=== PATIENT | male | born 1970 | race Hispanic/Latino ===

== ENCOUNTER 2024-11-16 09:40 | Emergency (ER) | payer BC ==
[~2024-11-16] VITALS: Ht 180.3 cm; Wt 99.0 kg
[2024-11-16 09:45] VITALS: PULSE 84; RESP 18; TEMP 98.9; O2SAT 96
[2024-11-16] MEDS ORDERED: LIDOCAINE HCL 2% LOCAL 20 ML VIAL ONE (10:08)
[2024-11-16] MEDS ORDERED: IBUPROFEN600 MG PO (10:09)
[2024-11-16] MEDS ORDERED: DOXYCYCLINE HY100 MG PO (10:09)
[2024-11-16] MEDS: LIDOCAINE HCL 2% LOCAL 20 ML VIAL INJ STA (10:16)
[2024-11-16] MEDS: BACITRACIN ZINC 0.9GM TP ONE (10:16)
[2024-11-16] MEDS: LIDOCAINE HCL 1% LOCAL INJ 20 ML VIAL INJ STA (10:16)
== END 2024-11-16 10:50 | disposition home or self-care (01) ==
LOC: FSED 09:53
DX: L02.412 Cutaneous abscess of left axilla (principal); L72.8 Other follicular cysts of the skin and subcutaneous tissue
CPT/HCPCS: 10061; 99284; J2003